=== PATIENT | female | born 1980 | race Hispanic/Latino ===

== ENCOUNTER 2017-06-26 13:03 | Emergency (ER) | payer OTHER ==
[~2017-06-26 13:03] MED LIST: ACET-2743 PO; FERR-82 PO; FERR325C PO; NITR100C4 PO; PREN1TAB26 PO; PREN1TAB80 PO
== END 2017-06-26 14:25 | disposition home or self-care (01) ==
LOC: EDH 13:03
DX: M23.8X2 Other internal derangements of left knee (principal); I10 Essential (primary) hypertension; E78.5 Hyperlipidemia, unspecified; Z87.891 Personal history of nicotine dependence
CPT/HCPCS: 99281

== ENCOUNTER 2024-05-17 16:47 | Emergency (ER) | payer BC, OTHER ==
[~2024-05-17] VITALS: Ht 167.6 cm; Wt 104.3 kg
--- NOTE | 2024-05-17 18:27 | HMCIMG ---
US VENOUS DOPPLER UNILATERAL REASON: r/o dvt , swelling, pain COMPARISON: None Technique: Left venous doppler ultrasound was performed with spectral analysis and color flow imaging technique. FINDINGS: There is a normal appearance of the common femoral, deep femoral, the profunda femoris and popliteal veins. Proximal calf veins appear normal as well. There is normal response to compression and augmentation. There is no evidence of deep venous thrombosis. There is a poorly defined fluid in the soft tissues of the upper medial calf. This is nonspecific but can be a reflection of her ruptured popliteal fossa cyst. IMPRESSION: 1. No evidence of deep venous thrombosis in the left lower extremity. 2. Fluid in the posterior portion of the upper calf, possible ruptured Bass's cyst.
--- NOTE | 2024-05-17 18:32 | ERN ---
ED Note History of Present Illness Stated Complaint: LEFT KNEE IRRITATION AFTER SURGERY Chief Complaint: Lower Extremity Pain/Injury Time Seen by MD: 17:04 Time Seen by Midlevel: 17:04 Dictation: The patient is a 44-year-old female with a history of diabetes, hypertension, hyperlipidemia who presents to the emergency department with nontraumatic left calf pain onset a week ago. Reports some erythema and pain to palpation. Left lower leg swelling. Denies any fever, chest pain. Or shortness of breath. Allergies: Coded Allergies: No Known Allergies (Unverified Allergy, 05/28/12) Home Meds Reported Medications Acetaminophen (Tylenol Extra Strength) 500 Mg Tablet, 500 MG PO AD PRN for PAIN, TAB 02/12/14 Nitrofurantoin Monohyd/M-Cryst (Macrobid 100 mg Capsule) 100 Mg Capsule, 100 MG PO DAILYDINNER, CAP 02/12/14 Ferrous Sulfate (Iron) 325 Mg Capsule.er, 325 MG PO DAILYDINNER, CAP 02/12/14 Vit/Iron Fumarate/FA ( Vitamins Tablet) 1 Each Tablet, 1 EACH PO DAILYDINNER, TAB 02/12/14 Ferrous Sulfate (Iron) 325 Mg Tablet, 325 MG PO DAILY, TAB 01/31/14 Vits W-Ca,Fe,FA(<1Mg) ( Vitamins) 1 Each Tablet, 1 EACH PO DAILY, TAB 01/31/14 Past Medical History Past Medical History: Diabetes-Type II, High Cholesterol, Hypertension Surgical History: Other, Surgical History Other: KNEE RN Note Reviewed/Agreed w/PFSH: Yes Review of System Dictation Constitutional: Negative for fever,chills, and weight loss Eyes: Negative for injury, pain,redness, and discharge ENT: Negative for injury,pain or swelling Cardiovascular: Negative for chest pain, palpitations, positive for left lower edema Respiratory: Negative for shortness of breath, cough, and wheezing, Abdomen/GI: Negative for abdominal pain, nausea, vomiting, diarrhea, and constipation Back: Negative for injury and pain : Negative for injury, bleeding and discharge MS/Extremity: Negative for injury and deformity Skin: Negative for rash, and discoloration Neuro: Negative for headache, weakness, numbness, tingling, and seizure Psych: Negative for suicide ideation, homicidal ideation, and hallucinations Initial Vital Sign VS Vital Signs Date Time Temp Pulse Resp B/P (MAP) Pulse Ox O2 Delivery O2 Flow Rate FiO2 05/17/24 17:59 97.9 93 20 127/91 99 Room Air 0 Physical Exam Dictation Vital Signs reviewed General Appearance: Alert, oriented x 3, no acute distress, well developed, nourished. Head and Face: non-traumatic. Eyes: PERRL, pink conjunctivas, eyelid no trauma, anterior chamber with arcus senilis. Ears: Pinnas intact and no signs of trauma or erythema ear canals clear and no discharge TM no erythema Nose: No discharge, no bleeding. Oropharynx: Mouth normal, tongue pink. pharynx clear,no erythema, tonsils no exudates, no abscesses noted, mucous membrane moist Neck: Supple, non-tender, no thyromegaly, no masses, no JVD, no bruits Breast:Deferred Chest:No tenderness, no crepitus, no paradoxical movement, no retractions Lungs:Clear, well-ventilated, symmetric, no rales, no wheezing, no rhonchi, no stridor, good breath sounds bilaterally Heart: Regular rate, regular rhythm, no murmur, no gallops Vascular: Left lower leg nonpitting edema, dorsalis pedis 2+. Abdomen: Soft, positive bowel sounds, nondistended, no guarding, nontender, no rebound, no masses no hepatomegaly, no splenomegaly, no Marie's sign, no hernias. Rectal: Deferred Genital: Deferred Neurological: Normal speech, motor function intact, sensory function intact Musculoskeletal: Neck nontender, full range of motion, back nontender, full range of motion, Extremities: nontender, full range of motion Skin: Color pink, dry, no turgor, no rash, no lacerations, no abrasions, no contusions. Erythema noted to left calf Lymphatic: Deferred Results (Laboratory/Radiology) Laboratory/Radiology REASON: r/o dvt , swelling, pain ORDERING PHYSICIAN: SERGEI RIOJAS PROCEDURE: VENOUS UNI - US VENOUS DOPPLER UNILATERAL US VENOUS DOPPLER UNILATERAL REASON: r/o dvt , swelling, pain COMPARISON: None Technique: Left venous doppler ultrasound was performed with spectral analysis and color flow imaging technique. FINDINGS: There is a normal appearance of the common femoral, deep femoral, the profunda femoris and popliteal veins. Proximal calf veins appear normal as well. There is normal response to compression and augmentation. There is no evidence of deep venous thrombosis. There is a poorly defined fluid in the soft tissues of the upper medial calf. This is nonspecific but can be a reflection of her ruptured popliteal fossa cyst. IMPRESSION: 1. No evidence of deep venous thrombosis in the left lower extremity. 2. Fluid in the posterior portion of the upper calf, possible ruptured Bass's cyst. Labs Reviewed?: Yes ED Course ED Course Orders Procedure Category Date Status Time Us Venous Doppler US 05/17/24 Resulted Unilateral 17: Cbc With Differential LAB 05/17/24 Logged 17:27 Basic Metabolic Panel LAB 05/17/24 Logged 17:27 B-Type Natriuretic LAB 05/17/24 Logged Peptide 17: Pt And Ptt LAB 05/17/24 Logged 17:27 Acetaminophen 500mg PHA 05/17/24 Complete Tab (Tylenol 500mg T 17:30 Current Medications Medications (Trade) Dose Ordered Sig/Lior Route PRN Reason Start Time Stop Time Status Last Admin Dose Admin Acetaminophen (TYLenol 500MG TAB) 1,000 mg ONCE ONCE PO 05/17/24 17:30 05/17/24 17:31 DC Vital Signs Date Time Temp Pulse Resp B/P (MAP) Pulse Ox O2 Delivery O2 Flow Rate FiO2 05/17/24 17:59 97.9 93 20 127/91 99 Room Air 0 Medical Decision Making MDM The patient is a 44-year-old female with a history of diabetes, hypertension, hyperlipidemia who presents to the emergency department with nontraumatic left calf pain onset a week ago. Reports some erythema and pain to palpation. Left lower leg swelling. Denies any fever, chest pain. Or shortness of breath. Ultrasound revealed no evidence of DVT. Patient's symptoms probably related to a ruptured cyst. Patient in no acute distress. Neurovascularly intact. Agrees to be discharged and follow up with PCP. An orthopedic. Differential diagnosis: DVT, cellulitis, CHF Need for hospitalization: Patient does not meet criteria for hospitalization. There are no social concerns with this patient. DX & DISP Disposition: Discharge Departure Impression: Primary Impression: Bass's cyst, ruptured Additional Impressions: Left leg swelling, Calf pain Condition: Stable Additional Instructions: Please follow up with your primary doctor in 1-2 days. Follow up with orthopedic. You may take [id number] ibuprofen for pain. Elevate your leg to help with swelling. If symptoms worsen and pain becomes severe please return to ER FOLLOW-UP WITH PRIMARY CARE PROVIDER IN 1 TO 2 DAYS. TAKE MEDICATIONS DIRECTED HERE IN THE EMERGENCY ROOM. OKAY TO CONTINUE HOME MEDICATIONS UNLESS OTHERWISE DISCUSSED DURING YOUR VISIT IN THE EMERGENCY ROOM TODAY. RETURN TO YOUR NEAREST EMERGENCY ROOM IF SYMPTOMS WORSEN OR IF THERE IS NO IMPROVEMENT. CALL 911 IF YOU NEED IMMEDIATE ASSISTANCE. TAKE TYLENOL OR MOTRIN [id number] NEEDED AND IF NO CONTRAINDICATIONS ARE PRESENT. INCREASE ORAL HYDRATION. A WOUND CULTURE OR URINE CULTURE WAS ORDERED HERE IN THE EMERGENCY ROOM DEPARTMENT PLEASE FOLLOW-UP WITH PRIMARY CARE PROVIDER AND ADVISE THEM TO GET REPEAT PORTS FROM OUR FACILITY. IF YOU HAD ANY GERONIMO WRAP/SPLINTS THAT WERE APPLIED HERE, PLEASE DO NOT REMOVE THEM UNTIL YOU SEE YOUR PRIMARY CARE OR SPECIALTY. Referrals: ALEXA DOSS MD (PCP) Time of Disposition: 19:10 I have reviewed the case, and I agree with, Diagnosis and Plan SERGEI RIOJAS May 17, 2024 18:32
[2024-05-17] MEDS: acetaMINOPHEN 500 MG TABLET PO ONE (21:23)
[2024-05-17 21:30] VITALS: BP 122/74; PULSE 77; RESP 18; TEMP 97.7; O2SAT 98
== END 2024-05-17 21:35 | disposition home or self-care (01) ==
LOC: EDH 16:47
DX: M66.0 Rupture of popliteal cyst (principal); M79.662 Pain in left lower leg; M79.89 Other specified soft tissue disorders; E11.9 Type 2 diabetes mellitus without complications; E78.00 Pure hypercholesterolemia, unspecified; I10 Essential (primary) hypertension
CPT/HCPCS: 93971; 99284